=== PATIENT | female | born 1990 | race Caucasian/White ===

== ENCOUNTER 2016-06-28 17:08 | Emergency (ER) | payer MEDICAID, OTHER ==
[2016-06-28 17:10] VITALS: BP 120/88; PULSE 94; RESP 24; TEMP 97.9; O2SAT 97
[2016-06-28] MEDS: RESP: ALBUTEROL 2.5 MG/IPRATROPIUM 0.5 MG NEB (SCH) INH ×2 (17:45→17:46)
[2016-06-28] MEDS ORDERED: DEXAMETHASONE SOD PHOS 4 MG/ML VIAL IM ONE (17:45)
[2016-06-28] MEDS ORDERED: ALBUAER3 INH (18:10)
[2016-06-28] MEDS ORDERED: PRED20 PO (18:10)
--- NOTE | 2016-06-28 18:10 | PD ---
HPI Chief Complaint: Respiratory Distress Time Seen by Provider: 17:38 Travel History International Travel<30 days: No Contact w/Intl Traveler<30days: No Traveled to known affect area: No History of Present Illness HPI 26-year-old female complains of coughing and wheezing and shortness of breath. Patient states that symptoms started this morning. Patient has history of asthma. Patient has inhaler however no nebulizer machine with her. Patient started having increasing shortness of breath and wheezing since this morning. Patient has mild occasional cough. Patient denies any chest pain. PFSH Social History Tobacco Use: No Allergies-Medications (Allergen,Severity, Reaction): Coded Allergies: No Known Allergies (Unverified , 06/28/16) Reported Meds & Prescriptions Reported Meds & Active Scripts Active Prednisone 20 Mg Tab 20 Mg PO BID Proair Hfa 8.5 GM Inh (Albuterol Sulfate) 90 Mcg/Act Aer 2 Puff INH Q4-6H PRN 108 mcg/actuation Review of Systems General / Constitutional: No: Fever Eyes: No: Visual changes HENT: No: Headaches Cardiovascular: No: Chest Pain or Discomfort Respiratory: Positive: Shortness of Breath, Wheezing Gastrointestinal: No: Abdominal Pain Genitourinary: No: Dysuria Musculoskeletal: No: Pain Skin: No Rash Neurologic: No: Weakness Psychiatric: No: Depression Endocrine: No: Polydipsia Hematologic/Lymphatic: No: Easy Bruising Physical Exam Narrative GENERAL: Well-nourished, well-developed patient. SKIN: Focused skin assessment warm/dry. HEAD: Normocephalic. EYES: No scleral icterus. No injection or drainage. NECK: Supple, trachea midline. No JVD or lymphadenopathy. CARDIOVASCULAR: Regular rate and rhythm without murmurs, gallops, or rubs. RESPIRATORY: Breath sounds equal bilaterally. No accessory muscle use. Patient has moderate bilateral wheezes bilaterally. No rhonchi. GASTROINTESTINAL: Abdomen soft, non-tender, nondistended. MUSCULOSKELETAL: No cyanosis, or edema. BACK: Nontender without obvious deformity. No CVA tenderness. Data Data Last Documented VS Vital Signs Date Time Temp Pulse Resp B/P Pulse Ox O2 Delivery O2 Flow Rate FiO2 06/28/16 17:10 97.9 94 24 120/88 97 Room Air Orders Albuterol-Ipratropium Neb (Duoneb Neb) (06/28/16 17:45) Dexamethasone Inj (Decadron Inj) (06/28/16 17:45) Resp Mdi / Spacer Instruction (06/28/16 18:04) MDM Medical Decision Making Medical Screen Exam Complete: Yes Emergency Medical Condition: Yes Differential Diagnosis Differential diagnosis including acute exacerbation of asthma, bronchitis, pneumonia, PE, pneumothorax. Narrative Course 26-year-old female with wheezing and coughing. History of asthma. Albuterol with Atrovent unit dose treatment 3. Decadron 8 mg IM. Diagnosis Primary Impression: Acute asthma exacerbation Qualified Code: J45.21 - Mild intermittent asthma with acute exacerbation Patient Instructions: General Instructions Additional Instructions: Use inhaler as directed. Prednisone as directed. Follow-up with personal physician. Return if worse. Med/Other Pt SpecificInfo: Prescription(s) given Scripts Prednisone 20 Mg Tab20 Mg PO BID #10 TAB Prov:Lucas Dhillon MD 06/28/16 Albuterol 8.5 GM Inh (Proair Hfa 8.5 GM Inh)90 Mcg/Act Aer2 Puff INH Q4-6H PRN ( SHORTNESS OF BREATH) #1 INHALER 108 mcg/actuation Prov:Lucas Dhillon MD 06/28/16 Disposition: 01 DISCHARGE HOME Condition: Stable Lucas Dhillon MD Jun 28, 2016 18:10
== END 2016-06-28 21:10 | disposition home or self-care (01) ==
LOC: NEPC 17:08
DX: J45.901 Unspecified asthma with (acute) exacerbation (principal)
CPT/HCPCS: 94640; 94664; 96372; 99284; J1100